=== PATIENT | female | born 1995 | race Hispanic/Latino ===

== ENCOUNTER 2019-05-30 11:36 | Emergency (ER) | payer OTHER | END 2019-05-30 12:00 | disposition home or self-care (01) | LOC: EDH 11:36 | DX: J11.1 Influenza due to unidentified influenza virus with other respiratory manifestations (principal); Z88.0 Allergy status to penicillin ==

== ENCOUNTER 2019-11-11 17:50 | Emergency (ER) | payer SELFPAY | END 2019-11-11 19:41 | disposition home or self-care (01) | LOC: EDH 17:50 | DX: B34.9 Viral infection, unspecified (principal) | CPT/HCPCS: 99281 ==

== ENCOUNTER 2019-11-28 09:56 | Emergency (ER) | payer OTHER, SELFPAY | END 2019-11-28 10:42 | disposition home or self-care (01) | LOC: EDH 09:56 | DX: U07.1 COVID-19 (principal); J12.89 Other viral pneumonia; R06.00 Dyspnea, unspecified; F41.9 Anxiety disorder, unspecified; Z88.0 Allergy status to penicillin ==